=== PATIENT | female | born 1940 | race Caucasian/White ===

== ENCOUNTER 2017-09-13 21:26 | Emergency (ER) | payer MEDICARE ==
[2017-09-13] MEDS ORDERED: NS 0.9% 1000 ML* 1,000 ML IV ONE ×2 (21:27→22:39)
[2017-09-13 22:12] LABS: ABS Basophils 0.1 10^3/ul (0-0.2); ABS Eosinophils 0.7 10^3/ul (0-0.6); ABS Lymphocytes 1.7 10^3/ul (1.0-4.8); ABS Monocytes 0.6 10^3/ul (0-0.8); ABS Neutrophils 6.8 10^3/ul (1.5-7.7); ABS Nucleated RBC 0 10^3/ul; Eosinophil % 6.6 % (0-6); Hematocrit 40 % (35-47); Hemoglobin 13.2 g/dl (12.0-16.0); Lymphocyte % 17.3 % (25-47); Mean Corpuscular HGB Conc 33 g/dl (31-36); Mean Corpuscular Hemoglobin 27 pg (27-31); Mean Corpuscular Volume 82 fL (80-97); Nucleated Red Blood Cells % 0; Platelet Count 153 10^3/ul (150-450); Red Blood Count 4.93 10^6/ul (4.00-5.40); Red Cell Distribution Width 15 % (10.5-15); White Blood Count 9.9 10^3/ul (3.5-10.8)
[2017-09-13 22:30] LABS: EGFR Non-African American 34.4 (>60)
--- NOTE | 2017-09-13 22:38 | ED ---
Syncope/Near Syncope - HPI Summary HPI Summary: 76 y/o female presents to the [facility] c/o syncope since this evening. She was having wine and dancing outdoors then she went to the bathroom after which she felt dizzy. She sat down, but fell off her chair due to syncope. Denies trauma. During the day she was working outdoors and felt hydrated. She notes vomiting, nausea, and lethargy but denies change in bowel movement. Pt states feeling better at bedside evaluation. This is scribe Arelis Cannon documenting for attending Dr. Elian MD. - History Of Current Complaint Chief Complaint: EDSyncope Time Seen by Provider: 09/13/17 21:27 Hx Obtained From: Patient, Family/[facility] - , EMS - BIBA, Medical Records Onset/Duration: Sudden Onset - This evening, Resolved Context: Witnessed - Her was present Activity At Onset: Other - Dancing and having wine Associated Head Trauma: No Alleviating Factor(s): Spontaneous Resolution Associated Signs And Symptoms: Dizzy, Vomiting, Other - Positive: Lethargy; Negative: Changes in bowel movement - Allergies/Home Medications Allergies/Adverse Reactions: Allergies Allergy/AdvReac Type Severity Reaction Status Date / Time No Known Allergies Allergy Verified 09/07/15 12:55 Home Medications: Home Medications dilTIAZem HCl [Diltiazem 24Hr ER] 180 mg PO DAILY 09/13/17 [History Confirmed ] PMH/Surg Hx/FS Hx/Imm Hx Previously Healthy: No Cardiovascular History: Reports: Hx Hypertension Respiratory History: Reports: Hx Seasonal Allergies Musculoskeletal History: Denies: Hx Osteoporosis - Surgical History Surgery Procedure, Year, and Place: facial surgery Infectious Disease History: No Infectious Disease History: Denies: Hx Clostridium Difficile, Hx Hepatitis, Hx Human Immunodeficiency Virus (HIV), Hx of Known/Suspected MRSA, Hx Shingles, Hx Tuberculosis, Hx Known/ Suspected VRE, Hx Known/Suspected VRSA, History Other Infectious Disease, Traveled Outside the [place] in Last 30 Days - Family History Known Family History: Positive: Other - neg: GI disorders - Social History Occupation: Retired Lives: With Family Alcohol Use: Occasionally Hx Substance Use: No Substance Use Type: Reports: None Hx Tobacco Use: No Smoking Status (MU): Never Smoked Tobacco Review of Systems Constitutional: Other - Positive: Lethargy Positive: Vomiting, Nausea. Negative: Other - neg: BM changes Neurological: Other - dizziness Positive: Syncope All Other Systems Reviewed And Are Negative: Yes Physical Exam - Summary Physical Exam Summary: Appearance: Well-appearing, Well-nourished, lying in bed comfortably Skin: Warm, dry, no obvious rash Eyes: sclera anicteric, no conjunctival pallor ENT: mucous membranes moist, pharynx appears normal Neck: Supple, nontender Respiratory: Clear to auscultation, no signs of respiratory distress Cardiovascular: Normal S1, S2. No murmurs. Normal distal pulses in tibial and radial bilaterally. Abdomen: Soft, nontender, normal active bowel sounds present Musculoskeletal: Normal, Strength/ROM Intact Neurological: A&Ox3, awake and alert, mentation is normal, speech is fluent and appropriate Psychiatric: affect is normal, does not appear anxious or depressed Triage Information Reviewed: Yes Vital Signs On Initial Exam: Initial Vitals Temp Pulse Resp BP Pulse Ox 97.0 F 75 15 131/61 100 09/13/17 21:30 09/13/17 21:30 09/13/17 21:30 09/13/17 21:30 09/13/17 21:30 Vital Signs Reviewed: Yes Diagnostics - Vital Signs Vital Signs Temp Pulse Resp BP Pulse Ox 09/13/17 22:06 71 24 116/54 98 09/13/17 22:00 74 17 97 09/13/17 21:37 79 21 131/61 100 09/13/17 21:35 74 99 09/13/17 21:30 97.0 F 75 15 131/61 100 - Laboratory Lab Results: Lab Results 09/13/17 09/13/17 09/13/17 Range/Units 22:03 22:03 22:03 WBC 9.9 (3.5-10.8) 10^3/ul RBC 4.93 (4.00-5.40) 10^6/ul Hgb 13.2 (12.0-16.0) g/dl Hct 40 (35-47) % MCV 82 (80-97) fL MCH 27 (27-31) pg MCHC 33 (31-36) g/dl RDW 15 (10.5-15) % Plt Count 153 (150-450) 10^3/ul MPV 11.0 H (7.4-10.4) um3 Neut % (Auto) 69.2 (38-83) % Lymph % (Auto) 17.3 L (25-47) % [place] % (Auto) 5.9 (0-7) % Eos % (Auto) 6.6 H (0-6) % Baso % (Auto) 1.0 (0-2) % Absolute Neuts (auto) 6.8 (1.5-7.7) 10^3/ul Absolute Lymphs (auto) 1.7 (1.0-4.8) 10^3/ul Absolute Monos (auto) 0.6 (0-0.8) 10^3/ul Absolute Eos (auto) 0.7 H (0-0.6) 10^3/ul Absolute Basos (auto) 0.1 (0-0.2) 10^3/ul Absolute Nucleated RBC 0 10^3/ul Nucleated RBC % 0 Sodium 141 (135-145) mmol/L Potassium 3.1 L (3.5-5.0) mmol/L Chloride 105 (101-111) mmol/L Carbon Dioxide 21 L (22-32) mmol/L Anion Gap 15 H (2-11) mmol/L BUN 30 H (6-24) mg/dL Creatinine 1.48 H (0.51-0.95) mg/dL Est GFR ( Amer) 41.6 (>60) Est GFR (Non-Af Amer) 34.4 (>60) BUN/Creatinine Ratio 20.3 H (8-20) Glucose 168 H (70-100) mg/dL Lactic Acid 2.8 H* (0.5-2.0) mmol/L Calcium 9.8 (8.6-10.3) mg/dL Magnesium 2.1 (1.9-2.7) mg/dL Total Bilirubin 0.80 (0.2-1.0) mg/dL AST 26 (13-39) U/L ALT 18 (7-52) U/L Alkaline Phosphatase 72 (34-104) U/L Troponin I 0.01 (<0.04) ng/mL Total Protein 6.8 (6.4-8.9) g/dL Albumin 4.4 (3.2-5.2) g/dL Globulin 2.4 (2-4) g/dL Albumin/Globulin Ratio 1.8 (1-3) Result Diagrams: 09/13/17 22:03 09/13/17 22:03 Lab Statement: Any lab studies that have been ordered have been reviewed, and results considered in the medical decision making process. - EKG 22:12 Cardiac Rate: NL - 74bpm EKG Rhythm: Sinus Rhythm - Prolonged mild QT interval Course/Dx Course Of Treatment: This is a 76-year-old woman was in good health until this evening when she suffered a syncopal episode. Context was that she had been outside gardening for most of the afternoon and had not been eating or drinking very much. She then went out with her and had some wine with dinner and when outside dancing in the heat. When she came inside to use the bathroom into the cool air of the air-conditioned building she urinated and then became lightheaded when she got up from the bathroom and passed out. She suffered some vomiting, but at present feels much better. The clinical scenario certainly consistent with vasovagal syncope. There was a concern about her stools looking somewhat dark and they do indeed guaiac positive, but she is not anemic with a normal hemoglobin. I explained to her that this would bear some follow-up with her regular doctor but did not require any immediate intervention and is very unlikely to contributed to the events of this evening. Her renal function is mildly impaired compared to her baseline so she will get a couple liters of IV fluids and which point I believe she will be stable for discharge. - Diagnoses Provider Diagnoses: Vasodepressor syncope Discharge - Sign-Out/Discharge Documenting (check all that apply): Patient Departure - Discharge Plan Patient Education Materials: Syncope (ED) Referrals: No Primary Care Phys,NOPCP [Primary Care Provider] - [facility] [Outside] Additional Instructions: Your stool sample did test positive for blood. I do not believe this is any relevance to the events of this evening, but it does bear a follow-up check with your regular doctor at next visit.
[2017-09-14 00:38] LABS: Urine Appearance Clear; Urine Blood Negative (Negative); Urine Color Yellow; Urine Ketones Negative (Negative); Urine Protein Negative (Negative); Urine Red Blood Cell Absent (Absent); Urine Urobilinogen Negative (Negative); Urine White Blood Cell 1+(6-10/hpf) (Absent)
[2017-09-14 00:49] VITALS: BP 142/68
== END 2017-09-14 00:56 | disposition home or self-care (01) ==
LOC: ED 21:26
DX: R55 Syncope and collapse (principal); R42 Dizziness and giddiness; R11.0 Nausea
CPT/HCPCS: 36415; 80053; 81003; 81015; 82272; 83605; 83735; 84484; 85025; 87086; 93005; 99284